=== PATIENT | male | born 1970 | race Caucasian/White ===

== ENCOUNTER → 2017-02-12 | Outpatient (CLI) | payer OTHER ==
[~2017-02-12] MED LIST: ALBU83IN INH; NORC5TAB PO; OMEP20CA3 PO; albuterol inh INH
--- NOTE | 2017-02-14 06:07 | SLEEPHOME ---
DATE OF PROCEDURE: 02/12/2017 ORDERED BY: Tiffanie Neely INTERPRETATION: Diagnostic home sleep testing was performed due to concern for the obstructive sleep apnea syndrome in this patient with nonrestorative sleep. For testing, a NOX-T3 respiratory monitoring device was used. Continuous record was made of pulse, oxygen saturation, air flow, chest and abdominal strain, and body position. 10 hours and 59 minutes of data were reviewed. Of these, 6 hours and 58 minutes were marked as time in bed. During the interval marked time in bed, there were 308 respiratory events identified of 10 seconds in duration or greater for a respiratory event index of 44.2. The events were primarily obstructive. Patient's baseline pulse rate was 77 beats per minute. Pulse rate ranged 56-131. Baseline oxygen saturation 90%. Lowest oxygen saturation recorded 54%. Testing was performed in both the supine and non-supine positions. IMPRESSION: Abnormal home sleep testing with repetitive respiratory events and oxygen desaturations to 54% with a respiratory event index of 44.2 is consistent with severe obstructive sleep apnea syndrome. RECOMMENDATION: The patient should be referred for formal sleep evaluation and in laboratory pressure titration.
== END ==
LOC: M SLEEP HO 14:17
PROVIDERS: ATTEND Nurse Practitioner Adult Health
DX: G47.30 Sleep apnea, unspecified (principal)

== ENCOUNTER 2017-02-15 05:59 | Day surgery (SDC) | payer OTHER ==
[2017-02-15] VITALS (7 sets, daily range): BP systolic 115–128; BP diastolic 66–79
[~2017-02-15] VITALS: Ht 177.8 cm; Wt 111.1 kg
[~2017-02-15 05:59] MED LIST changes: -NORC5TAB PO
[2017-02-15] MEDS ORDERED: LR 1,000 ML IV SCH ×2 (06:15→09:15)
[2017-02-15] MEDS ORDERED: CLINDAMYCIN 600 MG in APPROPRIATE DILUENT 1 EA IV ONE (06:15)
[2017-02-15] MEDS ORDERED: BUPIVACAINE/EPIN 0.25% 30 ML VIAL As Ordered ONE (07:14)
[2017-02-15] MEDS ORDERED: LIDOCAINE 2% INJ 100 MG/5 ML SDV (FOR ANES.) As Ordered ONE (07:16)
[2017-02-15] MEDS ORDERED: ROCURONIUM BROMIDE 50 MG/5 ML VIAL As Ordered ONE ×2 (07:16→07:59)
[2017-02-15] MEDS ORDERED: PROPOFOL 200 MG/20 ML VIAL As Ordered ONE (07:16)
[2017-02-15] MEDS ORDERED: MIDAZOLAM INJ 2 MG/2 ML VIAL (J2250) As Ordered ONE (07:16)
[2017-02-15] MEDS ORDERED: fentaNYL 250 MCG/5 ML INJECTION (J3010) As Ordered ONE (07:16)
[2017-02-15] MEDS ORDERED: dexameTHASONE 4 MG/ML 1ML VIAL (J1100) As Ordered ONE (07:45)
[2017-02-15] MEDS ORDERED: ONDANSETRON 4MG/2ML VIAL (J2405) As Ordered ONE (07:56)
[2017-02-15] MEDS ORDERED: KETOROLAC 60 MG/2 ML VIAL (J1885) As Ordered ONE (07:57)
[2017-02-15] MEDS ORDERED: NEOSTIGMINE 1MG/ML 5 ML SYRINGE (J2710) As Ordered ONE (07:57)
[2017-02-15] MEDS ORDERED: GLYCOPYRROLATE INJ 0.2 MG/ML 2 ML VIAL As Ordered ONE (07:57)
[2017-02-15] MEDS ORDERED: ONDANSETRON 4MG/2ML VIAL (J2405) IV PRN (09:15)
[2017-02-15] MEDS ORDERED: NORCO, ANEXSIA 5/325MG TABLET (HYDROcodone/ACETAMINOPHEN) PO PRN (09:15)
[2017-02-15] MEDS ORDERED: fentaNYL 100 MCG/2 ML INJECTION (J3010) IV PRN (09:15)
[2017-02-15] MEDS: NORCO, ANEXSIA 5/325MG TABLET (HYDROcodone/ACETAMINOPHEN) PO PRN ×2 (09:48→10:34)
--- NOTE | 2017-02-15 18:15 | RO ---
DATE OF PROCEDURE: 02/15/2017 PREOPERATIVE DIAGNOSIS: Incarcerated recurrent ventral hernia. POSTOPERATIVE DIAGNOSIS: Incarcerated recurrent ventral hernia. PROCEDURE: Laparoscopic incarcerated recurrent ventral hernia repair with mesh. SURGEON: Dr. Blayne Ram CASTING MACHINE OPERATOR HELPER: None. ANESTHESIA: General. ESTIMATED BLOOD LOSS: 5 mL. COMPLICATIONS: None. INDICATIONS FOR PROCEDURE: The patient is a 47-year-old male, had a ventral hernia repair done in 2014, 6 months later it returned. He was recommended to lose weight. However, over the past 6 months, he has been having increased pain and the hernia has been increasing in size. Therefore, he came in to me for evaluation. Recommendation was to proceed with laparoscopic, possible open repair. Risks and benefits of procedure, not limited to but including bleeding, infection, hernia recurrence, new hernia formation, damage to surrounding structures, need for further surgery were discussed in detail with the patient. Informed consent was obtained and procedure was planned. DESCRIPTION OF PROCEDURE: The patient was brought back to operating room #7. After sufficient sedation, the abdomen sterilely prepped and draped. Next, a time-out was done to confirm proper patient, proper procedure. Following that, a 5 mm incision was made in the left upper quadrant. Veress needle was inserted and the abdomen was insufflated to 15 mmHg. Next, the Veress needle was removed, 5 mm Optiview port was used to gain access to the abdomen. Once the abdomen was entered, the hernia site was examined. A large amount of omentum was stuck inside of it. Another 5 mm port was placed in the left lower quadrant. Using Enseal and a grasper, the omentum that was stuck up inside the hernia was all reduced out. Next, the Enseal was used to take down the falciform ligament, and the intraperitoneal fat along the anterior abdominal wall as well as the hernia sac circumferentially. Once the hernia sac was circumferentially incised, it was removed along with some remaining preperitoneal fat that was stuck inside of it. Once this was all completed, the hernia site was measured to be about 2-1/2 cm. A 12 cm round Parietex composite mesh was then taken, #0 Vicryl sutures were placed in all four corners, rolled up, placed inside the abdomen. Transfascial sutures were brought out through the abdominal wall using a Zelalem-Christiano needle. Once that was completed, two rows of SecureStrap tacks were placed around the perimeter of the mesh to hold it in place. Following that, Katerina clamps were used to remove some of the hernia sac and contents from the peritoneal cavity. Once this was completed, the abdomen was desufflated. The skin incisions were closed #4-0 Vicryl subcuticular sutures. The abdomen was cleaned and dried. Steri-Strips, 2 x 2's and tape were applied, thus ending procedure.
[2017-02-15] MEDS: OMEPRAZOLE 20 MG CAP PO SCH (21:03)
[2017-02-16 06:00] VITALS: BP 131/81
[2017-02-16] MEDS: OMEPRAZOLE 20 MG CAP PO SCH (09:48)
[2017-02-16] MEDS ORDERED: NORC5TAB PO (11:14)
== END 2017-02-16 11:40 | disposition home or self-care (01) ==
LOC: M SDC 05:59 → M MS5PR 11:06 → M SDC 02-16 11:40
PROVIDERS: ATTEND Surgery
DX: K43.6 Other and unspecified ventral hernia with obstruction, without gangrene (principal); J45.909 Unspecified asthma, uncomplicated; K21.9 Gastro-esophageal reflux disease without esophagitis; Z88.0 Allergy status to penicillin; Z87.891 Personal history of nicotine dependence; Z79.899 Other long term (current) drug therapy
CPT/HCPCS: 49653; 88302; C1781; J1100; J1885; J2250; J2405; J2710; J3010